=== PATIENT | male | born 1985 | race Hispanic/Latino ===

== ENCOUNTER 2017-02-16 10:33 | Emergency (ER) | payer OTHER ==
[~2017-02-16] VITALS: Ht 167.6 cm; Wt 113.6 kg
[2017-02-16] MEDS ORDERED: OMEP40CA2 PO (11:06)
[2017-02-16] MEDS ORDERED: AMIT10TA PO (11:06)
[2017-02-16] MEDS ORDERED: BACL10TA2 PO (11:06)
[2017-02-16] MEDS ORDERED: LYRI75CA PO (11:06)
--- NOTE | 2017-02-16 12:19 | REP ---
Left ankle series: Four views. History: Trauma. Findings: Four views of the left ankle demonstrate moderate anterolateral soft-tissue swelling. Ankle mortise is intact. There is Achilles calcaneal spurring. No fracture is seen. Impression: Anterolateral swelling. No fracture seen. Signed by Fuentes Maynard MD 02/16/2017 01:05 P
[2017-02-16] MEDS ORDERED: NAPR500T PO (12:23)
[2017-02-16 12:34] VITALS: BP 142/87
== END 2017-02-16 12:35 | disposition home or self-care (01) ==
LOC: M ED 12:17
DX: K12.2 Cellulitis and abscess of mouth (principal); S93.412A Sprain of calcaneofibular ligament of left ankle, initial encounter; R22.42 Localized swelling, mass and lump, left lower limb; X50.9XXA Other and unspecified overexertion or strenuous movements or postures, initial encounter; Y92.019 Unspecified place in single-family (private) house as the place of occurrence of the external cause; Y93.9 Activity, unspecified; Y99.8 Other external cause status; K21.9 Gastro-esophageal reflux disease without esophagitis; F17.200 Nicotine dependence, unspecified, uncomplicated; F41.9 Anxiety disorder, unspecified; F32.9 Major depressive disorder, single episode, unspecified; Z79.899 Other long term (current) drug therapy

== ENCOUNTER 2017-08-29 04:14 | Emergency (ER) | payer OTHER ==
[2017-08-29] MEDS: AUGMENTIN 875 MG TAB PO (05:05)
[2017-08-29] MEDS: NORCO 5/325MG TABLET (BULK FOR ED) PO (05:06)
== END 2017-08-29 05:17 | disposition home or self-care (01) ==
LOC: M ED 04:14
DX: H66.90 Otitis media, unspecified, unspecified ear (principal); M54.9 Dorsalgia, unspecified; G89.29 Other chronic pain; K21.9 Gastro-esophageal reflux disease without esophagitis; Z79.899 Other long term (current) drug therapy; Z98.890 Other specified postprocedural states
CPT/HCPCS: 99283

== ENCOUNTER 2017-11-03 21:29 | Emergency (ER) | payer OTHER ==
[2017-11-03 22:02] LABS: BEDSIDE GLUCOSE 111 MG/DL (70-105)
[2017-11-03 22:22] LABS: APPEARANCE, URINE CLEAR (CLEAR); BACTERIA, URINE AUTO NEGATIVE (NEGATIVE); BILIRUBIN, URINE AUTO NEGATIVE (NEGATIVE); BLOOD, URINE BLOOD 1+ (NEGATIVE); COLOR, URINE COLORLESS (YELLOW); GLUCOSE, URINE (UA) AUTO NEGATIVE (NEGATIVE); KETONE, URINE AUTO NEGATIVE (NEGATIVE); LEUKOCYTE ESTERASE, URINE AUTO NEGATIVE (NEGATIVE); NITRITE, URINE AUTO NEGATIVE (NEGATIVE); PROTEIN, URINE AUTO NEGATIVE (NEGATIVE); RBC, URINE AUTO 4 /HPF (0-3); SPECIFIC GRAVITY URINE AUTO 1.002 (1.002-1.035); SQUAMOUS EPITHELIAL CELL UR AU 0 /HPF (0-6); UROBILINOGEN, URINE AUTO 0.2 mg/dL (0.0-2.0); WBC, URINE AUTO 0 /HPF (0-3)
[2017-11-03 22:23] LABS: BASO # 0.1 10^3/uL (0.0-0.2); BASO % 0.8 % (0.0-1.0); EOS # 0.1 10^3/uL (0.0-0.50); EOS % 1.3 % (0.0-3.0); HEMATOCRIT 39.5 % (42.0-52.0); HEMOGLOBIN 13.9 g/dl (14.0-18.0); IMMATURE GRANULOCYTE % 0.4 % (0-3.0); LYMPH % 21.3 % (24.0-44.0); MEAN CORPUSCULAR HGB CONC 35.2 g/dl (32.0-36.5); MEAN CORPUSCULAR VOLUME 85.1 fl (80.0-96.0); MONO # 0.8 10^3/uL (0.0-0.8); MONO % 9.2 % (0.0-5.0); NEUTROPHILS # 6.1 10^3/uL (1.8-7.7); PLATELET COUNT, AUTOMATED 248 10^3/uL (150-450); RED BLOOD COUNT 4.64 10^6/uL (4.30-6.10); WHITE BLOOD COUNT 9.2 10^3/uL (4.0-10.0)
[2017-11-03 22:44] LABS: LACTIC ACID SEPSIS PROTOCOL 1.1 MMOL/L (0.4-2.0)
[2017-11-03 22:46] LABS: CPK CREATINE PHOSPHOKINASE 594 U/L (39-308); TROPONIN I < 0.02 NG/ML (< 0.10)
[2017-11-03 22:47] LABS: CK-MB VALUE MASS 2.7 NG/ML (0.0-3.6); MB/CK RELATIVE INDEX 0.45 (< OR =4)
[2017-11-03] MEDS: NS 1,000 ML IV (22:49)
[2017-11-03] MEDS: KETOROLAC 30 MG/ML VIAL (J1885) IV (22:50)
[2017-11-03 23:16] LABS: ALBUMIN/GLOBULIN RATIO 1.08 (1.00-1.93); ALKALINE PHOSPHATASE 81 U/L (45-117); ALT/SGPT 68 U/L (12-78); ANION GAP 10 MEQ/L (8-16); AST/SGOT 33 U/L (7-37); BILIRUBIN,DIRECT < 0.1 MG/DL (0.0-0.2); BILIRUBIN,TOTAL 0.4 MG/DL (0.2-1.0); BLOOD UREA NITROGEN 18 MG/DL (7-18); CALCIUM LEVEL 9.1 MG/DL (8.5-10.1); CARBON DIOXIDE LEVEL 24 MEQ/L (21-32); CHLORIDE LEVEL 108 MEQ/L (98-107); CREATININE FOR GFR 1.55 MG/DL (0.70-1.30); GLUCOSE, FASTING 104 MG/DL (70-100); LIPASE 64 U/L (73-393); POTASSIUM SERUM 3.7 MEQ/L (3.5-5.1); SODIUM LEVEL 142 MEQ/L (136-145); TOTAL PROTEIN 7.7 GM/DL (6.4-8.2)
== END 2017-11-04 01:54 | disposition home or self-care (01) ==
LOC: M ED 21:29
DX: R10.9 Unspecified abdominal pain (principal); F32.9 Major depressive disorder, single episode, unspecified; K21.9 Gastro-esophageal reflux disease without esophagitis; K76.0 Fatty (change of) liver, not elsewhere classified; Z79.899 Other long term (current) drug therapy; Z88.0 Allergy status to penicillin; Z88.1 Allergy status to other antibiotic agents
CPT/HCPCS: J1885